=== PATIENT | male | born 1995 | race Caucasian/White ===

== ENCOUNTER 2018-03-12 09:22 | Emergency (ER) | payer MEDICAID ==
[~2018-03-12] VITALS: Ht 167.6 cm; Wt 79.8 kg
[2018-03-12 10:48] LABS: microscopic required? YES; urine erythrocyte TRACE (NEGATIVE)
[2018-03-12 11:25] VITALS: BP 124/74
== END 2018-03-12 11:25 | disposition home or self-care (01) ==
LOC: ED 09:22
PROVIDERS: Emergency Medicine
DX: N34.2 Other urethritis (principal)
CPT/HCPCS: 87491; 87591; J0696; Q0162